=== PATIENT | male | born 1965 | race African-American/Black ===

== ENCOUNTER 2017-12-05 08:13 | Inpatient (IN) | payer OTHER ==
[2017-12-05 08:50] VITALS: BMI 25.8
[2017-12-05] MEDS ORDERED: LOPERAMIDE HCL 2 MG CAPSULE PO PRN (10:28)
[2017-12-05] MEDS ORDERED: IBUPROFEN 400 MG TABLET (FP) PO PRN (10:28)
[2017-12-05] MEDS ORDERED: MAG HYDROX/AL HYDROX/SIMETH 30 ML UNIT-DOSE CUP PO PRN (10:28)
[2017-12-05] MEDS ORDERED: P-EPHED 60MG/TRIPROLIDI 2.5MG TABLET PO PRN (10:28)
[2017-12-05] MEDS ORDERED: MAGNESIUM CITRATE 300 ML BOTTLE PO PRN (10:28)
[2017-12-05] MEDS ORDERED: MAGNESIUM HYDROX 2400MG/30ML ORAL SUSPENSION 30 ML CUP PO PRN (10:28)
--- NOTE | 2017-12-05 10:31 | HP ---
Admission ROS [facility] Chief Complaint: requesting inpatietn rehab for alcohol and cociane Allergies/Adverse Reactions: Allergies Allergy/AdvReac Type Severity Reaction Status Date / Time No Known Allergies Allergy Verified 12/05/17 09:53 History of Present Illness: 52 yo m requesting inpatient rehab from alcohol and cocaine [facility] PMHX biloar do, taking meds - Ebola screening Have you traveled outside of the country in the last 21 days: No Have you had contact with anyone from an Ebola affected area: No Have you been sick,other than usual withdrawal symptoms: No Do you have a fever: No - Review of Systems Constitutional: No Symptoms Reported EENT: reports: No Symptoms Reported Respiratory: reports: No Symptoms reported Cardiac: reports: No Symptoms Reported GI: reports: No Symptoms Reported : reports: No Symptoms Reported Musculoskeletal: reports: Joint Pain (bilaeral peripheral neurotpathy and pains in his hands), Other Integumentary: reports: No Symptoms Reported Neuro: reports: No Symptoms reported Endocrine: reports: No Symptoms Reported Hematology: reports: No Symptoms Reported Psychiatric: reports: Judgement Intact, Mood/Affect Appropiate, Orientated x3, Anxious, Depressed Other Systems: Reviewed and Negative Patient History - Patient Medical History Hx Anemia: No Hx Asthma: No Hx Chronic Obstructive Pulmonary Disease (COPD): No Hx Cancer: No Hx Cardiac Disorders: No Hx Congestive Heart Failure: No Hx Hypertension: Yes (taking meds) Hx Hypercholesterolemia: No Hx Pacemaker: No HX Cerebrovascular Accident: No Hx Seizures: No Hx Dementia: No Hx Diabetes: Yes (IDDM, taking meds) Hx Gastrointestinal Disorders: No Hx Liver Disease: No Hx Genitourinary Disorders: No Hx Sexually Transmitted Disorders: No Hx Renal Disease (ESRD): No Hx Thyroid Disease: No Hx Human Immunodeficiency Virus (HIV): No Hx Hepatitis C: No Hx Depression: Yes Hx Suicide Attempt: Yes (pill overdose in 03/2017, no si at this time) Hx Schizophrenia: No - Patient Surgical History Past Surgical History: No Hx Neurologic Surgery: No Hx Cataract Extraction: No Hx Cardiac Surgery: No Hx Lung Surgery: No Hx Breast Surgery: No Hx Breast Biopsy: No Hx Abdominal Surgery: No Hx Appendectomy: No Hx Cholecystectomy: No Hx Genitourinary Surgery: No Hx Section: No Hx Orthopedic Surgery: No Anesthesia Reaction: No - PPD History Previous Implant?: Yes Documented Results: Negative w/o proof Implanted On Prior [facility] Admission?: No PPD to be Administered?: Yes - Reproductive History Patient is a Female of Child Bearing Age (11 -55 yrs old): No Patient : No - Smoking Cessation Smoking history: Never smoked Have you smoked in the past 12 months: No Hx Chewing Tobacco Use: No Initiated information on smoking cessation: No 'Breaking Loose' booklet given: 12/05/17 - Substance & Tx. History Hx Alcohol Use: Yes Hx Substance Use: Yes Substance Use Type: Alcohol, Cocaine Hx Substance Use Treatment: Yes ([facility] detox) - Substances Abused Crack Route: Smoking Frequency: 1-3 times last 30 days Amount used: $40 Age of first use: 32 Date of Last Use: 11/27/17 Alcohol-beer/vodka Route: Oral Frequency: 3-6 times per week Amount used: 2 (24 oz.)/1-2 pts. Age of first use: 14 Date of Last Use: 11/27/17 Family Disease History - Family Disease History Family Disease History: Diabetes: Mother (alcohol), Other: Father (high cholesterol, cocaine addiction ) Admission Physical Exam [facility] - Vital Signs Vital Signs: Vital Signs - 24 hr 12/05/17 08:48 Temperature 98.8 F Pulse Rate 96 H Respiratory 18 Rate Blood Pressure 110/73 - Physical General Appearance: Yes: Within Normal Limits, No Apparent Distress, Nourished, Appropriately Dressed, Disheveled HEENTM: Yes: Within Normal Limits, EOMI, Hearing grossly Normal, Normal ENT Inspection, Normocephalic, Normal Voice, JUAN CARLOS, Pharynx Normal Respiratory: Yes: Within Normal Limits, Chest Non-Tender, Lungs Clear, Normal Breath Sounds, No Respiratory Distress, No Accessory Muscle Use Neck: Yes: Within Normal Limits, No masses,lesions,Nodules, Supple, Trachea in good position Breast: Yes: Breast Exam Deferred Cardiology: Yes: Within Normal Limits, Regular Rhythm, Regular Rate, S1, S2 Abdominal: Yes: Within Normal Limits, Normal Bowel Sounds, Non Tender, Flat, Soft, Increased Bowel Sounds Genitourinary: Yes: Within Normal Limits Back: Yes: Within Normal Limits, Normal Inspection Musculoskeletal: Yes: Within Normal Limits, full range of Motion, Gait Steady, Pelvis Stable Extremities: Yes: Within Normal Limits, Normal Capillary Refill, Normal Inspection, Normal Range of Motion, Non-Tender Neurological: Yes: pier master II-XII NML intact, Fully Oriented, Alert, Motor Strength 5/5, Normal Response, Depressed Affect Integumentary: Yes: Within Normal Limits, Normal Color, Dry, Warm Lymphatic: Yes: Within Normal Limits - Addiitonal Findings: no signs of withdrwal - Diagnostic (1) Bipolar depression Current Visit: Yes Status: Acute (2) Essential hypertension Current Visit: Yes Status: Acute (3) Diabetes Current Visit: Yes Status: Acute (4) Peripheral neuropathy Current Visit: Yes Status: Acute (5) Uncomplicated alcohol dependence Current Visit: No Status: Acute (6) Hyperlipidemia Current Visit: Yes Status: Acute (7) Cocaine dependence Current Visit: Yes Status: Acute Cleared for Admission [facility] - Detox or Rehab Claeared for Rehab Admission: Yes [facility] Breath Alcohol Content Breath Alcohol Content: 0 Urine Drug Screen - Results Drug Screen Negative: Yes Inpatient Rehab Admission - Initial Determination Are CD services needed?: Yes Free of communicable disease: Yes Not in need of hospitalization: Yes - Rehab Admission Criteria Comorbidities: Yes Patient is meeting Inpatient Rehab admission criteria:: Yes
[2017-12-05] MEDS: NAPROXEN 500 MG TABLET (FP) PO SCH ×2 (13:44→21:48)
[2017-12-05] MEDS: PANTOPRAZOLE 40 MG TABLET (FP) PO SCH (13:45)
[2017-12-05] MEDS: GABAPENTIN 300 MG CAPSULE (FP) PO SCH ×2 (13:45→21:48)
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
[2017-12-05 15:23] LABS: HEMATOCRIT 38.3 % (35.4-49); HEMOGLOBIN 12.6 GM/dL (11.7-16.9); MCH 30.2 pg (25.7-33.7); MCHC 32.9 g/dl (32.0-35.9); MEAN CELL VOLUME 91.7 fl (80-96); MEAN PLT VOLUME 8.3 fl (7.5-11.1); PLATELET COUNT 323 K/MM3 (134-434); RBC 4.17 M/mm3 (4.00-5.60); RDW 14.1 % (11.9-15.9); WHITE BLOOD COUNT 6.3 K/mm3 (4.0-10.0)
[2017-12-05 15:26] LABS: CHLORIDE 96 mmol/L (98-107); POTASSIUM 4.7 mmol/L (3.5-5.1); SODIUM 134 mmol/L (136-145)
[2017-12-05 15:57] LABS: ALBUMIN 4.1 g/dl (3.4-5.0); ALK PHOS 124 U/L (45-117); ANION GAP 9 (8-16); BILIRUBIN,TOTAL 0.2 mg/dL (0.2-1.0); BLOOD UREA NITROGEN 18 mg/dL (7-18); CALCIUM 9.4 mg/dL (8.5-10.1); CO2 29 mmol/L (21-32); CREATININE 1.3 mg/dL (0.7-1.3); GLUCOSE,RANDOM 245 mg/dL (74-106); SGOT/AST 15 U/L (15-37); SGPT/ALT 20 U/L (12-78); TOT PROT 8.2 g/dl (6.4-8.2)
[2017-12-05] MEDS: metFORMIN HCL 500 MG TABLET (FP) PO SCH (16:58)
[2017-12-05] MEDS: INSULIN (NOVOLOG) ASPART 100 UNITS/ML 10ML VIAL SQ SCH (16:59)
[2017-12-05 17:26] LABS: URINE APPEARANCE CLEAR; URINE BILIRUBIN NEGATIVE (NEGATIVE); URINE BLOOD NEGATIVE (NEGATIVE); URINE COLOR LTYELLOW; URINE GLUCOSE (UA) 3+ (NEGATIVE); URINE KETONE NEGATIVE (NEGATIVE); URINE LEUK ESTERASE NEGATIVE (NEGATIVE); URINE NITRITE NEGATIVE (NEGATIVE); URINE PROTEIN NEGATIVE (NEGATIVE); URINE UROBILINOGEN NEGATIVE mg/dL (0.2-1.0)
[2017-12-05 18:13] LABS: SICKLE CELL SCREEN NEGATIVE (NEGATIVE)
[2017-12-05] MEDS: INSULIN DETEMIR 100 UNITS/ML MDV SQ SCH (21:47)
[2017-12-05] MEDS: traZODone HCL 50 MG TABLET (FP) PO SCH (21:48)
[2017-12-05] MEDS: ATORVASTATIN CA 40 MG TABLET (FP) PO SCH (21:48)
[2017-12-05] MEDS: THIAMINE HCL 100 MG TABLET (FP) PO SCH (21:49)
[2017-12-06] MEDS: GABAPENTIN 300 MG CAPSULE (FP) PO SCH ×3 (06:41→21:53)
[2017-12-06] MEDS: metFORMIN HCL 500 MG TABLET (FP) PO SCH ×2 (07:15→17:17)
[2017-12-06] MEDS: INSULIN (NOVOLOG) ASPART 100 UNITS/ML 10ML VIAL SQ SCH ×3 (07:47→17:18)
[2017-12-06] MEDS: LURASIDONE HCL 20 MG TABLET PO SCH (10:16)
[2017-12-06] MEDS: LISINOPRIL 10 MG TABLET (FP) PO SCH (10:16)
[2017-12-06] MEDS: NAPROXEN 500 MG TABLET (FP) PO SCH ×2 (10:16→21:53)
[2017-12-06] MEDS: CITALOPRAM HYDROBROMIDE 20 MG TABLET (FP) PO SCH (10:16)
[2017-12-06] MEDS: PANTOPRAZOLE 40 MG TABLET (FP) PO SCH (10:16)
[2017-12-06] MEDS: PRENATAL VITAMINS W/ FOLIC ACID TABLET (FP) PO SCH (10:16)
[2017-12-06] MEDS ORDERED: PNEUMOCOCCAL 23 VACCINE 0.5 ML VIAL IM ONE (12:00)
[2017-12-06] MEDS ORDERED: FLU VACCINE QUAD 60 MCG/0.5 ML (MDV 17-18) IM ONE (12:00)
[2017-12-06] MEDS ORDERED: PNEUMOC 13-VAL CONJ-DIP CRM/PF 0.5 ML DISP.SYRIN IM ONE (12:00)
[2017-12-06] MEDS ORDERED: INSULIN (NOVOLOG) ASPART 100 UNITS/ML 10ML VIAL ONE (12:00)
--- NOTE | 2017-12-06 15:19 | EKG ---
Test Reason : Blood Pressure : / mmHG Vent. Rate : 087 BPM Atrial Rate : 087 BPM P-R Int : 154 ms QRS Dur : 094 ms QT Int : 366 ms P-R-T Axes : 071 -33 047 degrees QTc Int : 440 ms SINUS RHYTHM WITH OCCASIONAL PREMATURE VENTRICULAR COMPLEXES LEFT AXIS DEVIATION ABNORMAL ECG NO PREVIOUS ECGS AVAILABLE Confirmed by Vargas Miranda MD ([id number]) on 12/06/2017 3:19:06 PM Referred By: Confirmed By:Vargas Miranda MD
[2017-12-06] MEDS: THIAMINE HCL 100 MG TABLET (FP) PO SCH (21:53)
[2017-12-06] MEDS: INSULIN DETEMIR 100 UNITS/ML MDV SQ SCH (21:53)
[2017-12-06] MEDS: traZODone HCL 50 MG TABLET (FP) PO SCH (21:53)
[2017-12-06] MEDS: ATORVASTATIN CA 40 MG TABLET (FP) PO SCH (21:53)
[2017-12-07] MEDS: GABAPENTIN 300 MG CAPSULE (FP) PO SCH ×3 (06:19→21:41)
[2017-12-07] MEDS: metFORMIN HCL 500 MG TABLET (FP) PO SCH ×2 (06:19→16:52)
[2017-12-07] MEDS: INSULIN (NOVOLOG) ASPART 100 UNITS/ML 10ML VIAL SQ SCH ×3 (07:29→16:54)
[2017-12-07] MEDS: NAPROXEN 500 MG TABLET (FP) PO SCH ×2 (10:08→21:41)
[2017-12-07] MEDS: LISINOPRIL 10 MG TABLET (FP) PO SCH (10:09)
[2017-12-07] MEDS: LURASIDONE HCL 20 MG TABLET PO SCH (10:09)
[2017-12-07] MEDS: CITALOPRAM HYDROBROMIDE 20 MG TABLET (FP) PO SCH (10:09)
[2017-12-07] MEDS: PRENATAL VITAMINS W/ FOLIC ACID TABLET (FP) PO SCH (10:09)
[2017-12-07] MEDS: PANTOPRAZOLE 40 MG TABLET (FP) PO SCH (10:09)
[2017-12-07] MEDS: MENTHOL/PHENOL 1 EACH UD MM PRN ×2 (14:44→19:36)
[2017-12-07] MEDS: guaiFENesin/D-METHORPHAN HB 10 ML UNIT-DOSE CUPS PO PRN (20:32)
[2017-12-07] MEDS: traZODone HCL 50 MG TABLET (FP) PO SCH (21:41)
[2017-12-07] MEDS: THIAMINE HCL 100 MG TABLET (FP) PO SCH (21:41)
[2017-12-07] MEDS: ATORVASTATIN CA 40 MG TABLET (FP) PO SCH (21:41)
[2017-12-07] MEDS: INSULIN DETEMIR 100 UNITS/ML MDV SQ SCH (21:42)
[2017-12-08] MEDS: guaiFENesin/D-METHORPHAN HB 10 ML UNIT-DOSE CUPS PO PRN ×2 (06:41→18:07)
[2017-12-08] MEDS: ACETAMINOPHEN 325 MG TABLET (FP) PO PRN ×2 (06:41→18:06)
[2017-12-08] MEDS: GABAPENTIN 300 MG CAPSULE (FP) PO SCH ×3 (06:41→21:29)
[2017-12-08] MEDS: metFORMIN HCL 500 MG TABLET (FP) PO SCH ×2 (06:41→17:03)
[2017-12-08] MEDS: INSULIN (NOVOLOG) ASPART 100 UNITS/ML 10ML VIAL SQ SCH ×3 (06:43→17:04)
[2017-12-08] MEDS: LISINOPRIL 10 MG TABLET (FP) PO SCH (10:18)
[2017-12-08] MEDS: LURASIDONE HCL 20 MG TABLET PO SCH (10:18)
[2017-12-08] MEDS: NAPROXEN 500 MG TABLET (FP) PO SCH ×2 (10:18→21:29)
[2017-12-08] MEDS: PANTOPRAZOLE 40 MG TABLET (FP) PO SCH (10:18)
[2017-12-08] MEDS: PRENATAL VITAMINS W/ FOLIC ACID TABLET (FP) PO SCH (10:18)
[2017-12-08] MEDS: CITALOPRAM HYDROBROMIDE 20 MG TABLET (FP) PO SCH (10:18)
[2017-12-08] MEDS: traZODone HCL 50 MG TABLET (FP) PO SCH (21:29)
[2017-12-08] MEDS: ATORVASTATIN CA 40 MG TABLET (FP) PO SCH (21:29)
[2017-12-08] MEDS: THIAMINE HCL 100 MG TABLET (FP) PO SCH (21:29)
[2017-12-08] MEDS: INSULIN DETEMIR 100 UNITS/ML MDV SQ SCH (21:29)
[2017-12-09] MEDS: metFORMIN HCL 500 MG TABLET (FP) PO SCH ×2 (06:29→17:04)
[2017-12-09] MEDS: GABAPENTIN 300 MG CAPSULE (FP) PO SCH ×3 (06:29→21:56)
[2017-12-09] MEDS: guaiFENesin/D-METHORPHAN HB 10 ML UNIT-DOSE CUPS PO PRN ×2 (06:45→21:59)
[2017-12-09] MEDS: ACETAMINOPHEN 325 MG TABLET (FP) PO PRN (06:46)
[2017-12-09] MEDS: INSULIN (NOVOLOG) ASPART 100 UNITS/ML 10ML VIAL SQ SCH ×3 (07:37→17:04)
[2017-12-09] MEDS: CITALOPRAM HYDROBROMIDE 20 MG TABLET (FP) PO SCH (10:13)
[2017-12-09] MEDS: PRENATAL VITAMINS W/ FOLIC ACID TABLET (FP) PO SCH (10:14)
[2017-12-09] MEDS: NAPROXEN 500 MG TABLET (FP) PO SCH ×2 (10:14→21:56)
[2017-12-09] MEDS: LISINOPRIL 10 MG TABLET (FP) PO SCH (10:14)
[2017-12-09] MEDS: LURASIDONE HCL 20 MG TABLET PO SCH (10:14)
[2017-12-09] MEDS: PANTOPRAZOLE 40 MG TABLET (FP) PO SCH (10:14)
[2017-12-09] MEDS: THIAMINE HCL 100 MG TABLET (FP) PO SCH (21:56)
[2017-12-09] MEDS: ATORVASTATIN CA 40 MG TABLET (FP) PO SCH (21:56)
[2017-12-09] MEDS: traZODone HCL 50 MG TABLET (FP) PO SCH (21:56)
[2017-12-09] MEDS: INSULIN DETEMIR 100 UNITS/ML MDV SQ SCH (21:57)
[2017-12-10] MEDS: metFORMIN HCL 500 MG TABLET (FP) PO SCH ×2 (06:28→16:50)
[2017-12-10] MEDS: GABAPENTIN 300 MG CAPSULE (FP) PO SCH ×3 (06:28→21:36)
[2017-12-10] MEDS: INSULIN (NOVOLOG) ASPART 100 UNITS/ML 10ML VIAL SQ SCH ×3 (07:57→16:53)
[2017-12-10] MEDS ORDERED: INSULIN (NOVOLOG) ASPART 100 UNITS/ML 10ML VIAL ONE (07:59)
[2017-12-10] MEDS: LURASIDONE HCL 20 MG TABLET PO SCH (10:00)
[2017-12-10] MEDS: LISINOPRIL 10 MG TABLET (FP) PO SCH (10:00)
[2017-12-10] MEDS: CITALOPRAM HYDROBROMIDE 20 MG TABLET (FP) PO SCH (10:00)
[2017-12-10] MEDS: PANTOPRAZOLE 40 MG TABLET (FP) PO SCH (10:00)
[2017-12-10] MEDS: NAPROXEN 500 MG TABLET (FP) PO SCH ×2 (10:00→21:36)
[2017-12-10] MEDS: PRENATAL VITAMINS W/ FOLIC ACID TABLET (FP) PO SCH (10:00)
[2017-12-10] MEDS: ATORVASTATIN CA 40 MG TABLET (FP) PO SCH (21:36)
[2017-12-10] MEDS: traZODone HCL 50 MG TABLET (FP) PO SCH (21:36)
[2017-12-10] MEDS: INSULIN DETEMIR 100 UNITS/ML MDV SQ SCH (21:37)
[2017-12-10] MEDS: THIAMINE HCL 100 MG TABLET (FP) PO SCH (21:37)
[2017-12-11] MEDS: GABAPENTIN 300 MG CAPSULE (FP) PO SCH ×3 (06:16→21:30)
[2017-12-11] MEDS: metFORMIN HCL 500 MG TABLET (FP) PO SCH ×2 (06:16→17:08)
[2017-12-11] MEDS: INSULIN (NOVOLOG) ASPART 100 UNITS/ML 10ML VIAL SQ SCH ×3 (06:19→17:09)
[2017-12-11] MEDS: PRENATAL VITAMINS W/ FOLIC ACID TABLET (FP) PO SCH (09:48)
[2017-12-11] MEDS: NAPROXEN 500 MG TABLET (FP) PO SCH ×2 (09:48→21:30)
[2017-12-11] MEDS: PANTOPRAZOLE 40 MG TABLET (FP) PO SCH (09:48)
[2017-12-11] MEDS: LURASIDONE HCL 20 MG TABLET PO SCH (09:48)
[2017-12-11] MEDS: CITALOPRAM HYDROBROMIDE 20 MG TABLET (FP) PO SCH (09:48)
[2017-12-11] MEDS: LISINOPRIL 10 MG TABLET (FP) PO SCH (09:49)
[2017-12-11] MEDS ORDERED: BACITRACIN 15 GM TUBE TOPICAL OINTMENT TP SCH (10:00)
[2017-12-11] MEDS: HYDROCORTISONE 1% TOPICAL CREAM 30 GM TUBE TP PRN ×2 (13:48→21:32)
[2017-12-11] MEDS: ATORVASTATIN CA 40 MG TABLET (FP) PO SCH (21:30)
[2017-12-11] MEDS: traZODone HCL 50 MG TABLET (FP) PO SCH (21:30)
[2017-12-11] MEDS: THIAMINE HCL 100 MG TABLET (FP) PO SCH (21:30)
[2017-12-11] MEDS: INSULIN DETEMIR 100 UNITS/ML MDV SQ SCH (21:31)
[2017-12-11] MEDS: BACITRACIN 0.9 GM PACKET TP SCH (22:01)
[2017-12-12] MEDS: metFORMIN HCL 500 MG TABLET (FP) PO SCH ×2 (06:43→16:53)
[2017-12-12] MEDS: GABAPENTIN 300 MG CAPSULE (FP) PO SCH ×3 (06:43→21:25)
[2017-12-12] MEDS: INSULIN (NOVOLOG) ASPART 100 UNITS/ML 10ML VIAL SQ SCH ×3 (06:44→16:54)
[2017-12-12] MEDS: PANTOPRAZOLE 40 MG TABLET (FP) PO SCH (10:04)
[2017-12-12] MEDS: CITALOPRAM HYDROBROMIDE 20 MG TABLET (FP) PO SCH (10:04)
[2017-12-12] MEDS: NAPROXEN 500 MG TABLET (FP) PO SCH ×2 (10:04→21:25)
[2017-12-12] MEDS: PRENATAL VITAMINS W/ FOLIC ACID TABLET (FP) PO SCH (10:04)
[2017-12-12] MEDS: LURASIDONE HCL 20 MG TABLET PO SCH (10:04)
[2017-12-12] MEDS: LISINOPRIL 10 MG TABLET (FP) PO SCH (10:05)
[2017-12-12] MEDS: BACITRACIN 0.9 GM PACKET TP SCH ×2 (10:06→21:25)
[2017-12-12] MEDS: ATORVASTATIN CA 40 MG TABLET (FP) PO SCH (21:25)
[2017-12-12] MEDS: THIAMINE HCL 100 MG TABLET (FP) PO SCH (21:25)
[2017-12-12] MEDS: traZODone HCL 50 MG TABLET (FP) PO SCH (21:27)
[2017-12-12] MEDS: INSULIN DETEMIR 100 UNITS/ML MDV SQ SCH (21:27)
[2017-12-13] MEDS: GABAPENTIN 300 MG CAPSULE (FP) PO SCH ×3 (06:40→21:50)
[2017-12-13] MEDS: INSULIN (NOVOLOG) ASPART 100 UNITS/ML 10ML VIAL SQ SCH ×3 (06:40→17:08)
[2017-12-13] MEDS: metFORMIN HCL 500 MG TABLET (FP) PO SCH ×2 (06:40→17:08)
[2017-12-13] MEDS: NAPROXEN 500 MG TABLET (FP) PO SCH ×2 (10:34→21:50)
[2017-12-13] MEDS: CITALOPRAM HYDROBROMIDE 20 MG TABLET (FP) PO SCH (10:34)
[2017-12-13] MEDS: PANTOPRAZOLE 40 MG TABLET (FP) PO SCH (10:35)
[2017-12-13] MEDS: LURASIDONE HCL 20 MG TABLET PO SCH (10:35)
[2017-12-13] MEDS: PRENATAL VITAMINS W/ FOLIC ACID TABLET (FP) PO SCH (10:35)
[2017-12-13] MEDS: LISINOPRIL 10 MG TABLET (FP) PO SCH (10:37)
[2017-12-13] MEDS: BACITRACIN 0.9 GM PACKET TP SCH ×2 (10:38→21:53)
[2017-12-13] MEDS ORDERED: INSULIN (NOVOLOG) ASPART 100 UNITS/ML 10ML VIAL ONE (12:03)
[2017-12-13] MEDS: THIAMINE HCL 100 MG TABLET (FP) PO SCH (21:50)
[2017-12-13] MEDS: traZODone HCL 50 MG TABLET (FP) PO SCH (21:50)
[2017-12-13] MEDS: INSULIN DETEMIR 100 UNITS/ML MDV SQ SCH (21:50)
[2017-12-13] MEDS: HYDROCORTISONE 1% TOPICAL CREAM 30 GM TUBE TP PRN (21:52)
[2017-12-13] MEDS: ATORVASTATIN CA 40 MG TABLET (FP) PO SCH (21:53)
[2017-12-14] MEDS: GABAPENTIN 300 MG CAPSULE (FP) PO SCH ×3 (06:12→21:41)
[2017-12-14] MEDS: metFORMIN HCL 500 MG TABLET (FP) PO SCH ×2 (06:12→17:01)
[2017-12-14] MEDS: INSULIN (NOVOLOG) ASPART 100 UNITS/ML 10ML VIAL SQ SCH ×3 (06:41→17:02)
[2017-12-14] MEDS: CITALOPRAM HYDROBROMIDE 20 MG TABLET (FP) PO SCH (10:00)
[2017-12-14] MEDS: PANTOPRAZOLE 40 MG TABLET (FP) PO SCH (10:00)
[2017-12-14] MEDS: BACITRACIN 0.9 GM PACKET TP SCH ×2 (10:00→22:26)
[2017-12-14] MEDS: NAPROXEN 500 MG TABLET (FP) PO SCH ×2 (10:00→21:41)
[2017-12-14] MEDS: PRENATAL VITAMINS W/ FOLIC ACID TABLET (FP) PO SCH (10:00)
[2017-12-14] MEDS: LURASIDONE HCL 20 MG TABLET PO SCH (10:00)
[2017-12-14] MEDS: LISINOPRIL 10 MG TABLET (FP) PO SCH (10:01)
[2017-12-14] MEDS: ATORVASTATIN CA 40 MG TABLET (FP) PO SCH (21:41)
[2017-12-14] MEDS: THIAMINE HCL 100 MG TABLET (FP) PO SCH (21:41)
[2017-12-14] MEDS: traZODone HCL 50 MG TABLET (FP) PO SCH (21:41)
[2017-12-14] MEDS: INSULIN DETEMIR 100 UNITS/ML MDV SQ SCH (22:25)
[2017-12-15] MEDS: GABAPENTIN 300 MG CAPSULE (FP) PO SCH ×3 (06:31→21:43)
[2017-12-15] MEDS: INSULIN (NOVOLOG) ASPART 100 UNITS/ML 10ML VIAL SQ SCH ×3 (06:32→16:56)
[2017-12-15] MEDS: metFORMIN HCL 500 MG TABLET (FP) PO SCH ×2 (07:08→16:55)
[2017-12-15] MEDS: PRENATAL VITAMINS W/ FOLIC ACID TABLET (FP) PO SCH (10:24)
[2017-12-15] MEDS: LURASIDONE HCL 20 MG TABLET PO SCH (10:24)
[2017-12-15] MEDS: CITALOPRAM HYDROBROMIDE 20 MG TABLET (FP) PO SCH (10:24)
[2017-12-15] MEDS: NAPROXEN 500 MG TABLET (FP) PO SCH ×2 (10:24→21:43)
[2017-12-15] MEDS: LISINOPRIL 10 MG TABLET (FP) PO SCH (10:25)
[2017-12-15] MEDS: HYDROCORTISONE 1% TOPICAL CREAM 30 GM TUBE TP PRN (10:25)
[2017-12-15] MEDS: PANTOPRAZOLE 40 MG TABLET (FP) PO SCH (10:25)
[2017-12-15] MEDS: BACITRACIN 0.9 GM PACKET TP SCH ×2 (10:27→21:46)
[2017-12-15] MEDS: THIAMINE HCL 100 MG TABLET (FP) PO SCH (21:43)
[2017-12-15] MEDS: ATORVASTATIN CA 40 MG TABLET (FP) PO SCH (21:43)
[2017-12-15] MEDS: traZODone HCL 50 MG TABLET (FP) PO SCH (21:43)
[2017-12-15] MEDS: INSULIN DETEMIR 100 UNITS/ML MDV SQ SCH (21:44)
[2017-12-15] MEDS: hydrOXYzine PAMOATE 50 MG CAPSULE (FP) PO PRN (21:45)
[2017-12-16] MEDS: GABAPENTIN 300 MG CAPSULE (FP) PO SCH ×3 (06:24→21:30)
[2017-12-16] MEDS: INSULIN (NOVOLOG) ASPART 100 UNITS/ML 10ML VIAL SQ SCH ×3 (06:24→16:53)
[2017-12-16] MEDS: metFORMIN HCL 500 MG TABLET (FP) PO SCH ×2 (06:24→16:50)
[2017-12-16] MEDS: CITALOPRAM HYDROBROMIDE 20 MG TABLET (FP) PO SCH (10:16)
[2017-12-16] MEDS: PRENATAL VITAMINS W/ FOLIC ACID TABLET (FP) PO SCH (10:16)
[2017-12-16] MEDS: LISINOPRIL 10 MG TABLET (FP) PO SCH ×2 (10:16→10:17)
[2017-12-16] MEDS: BACITRACIN 0.9 GM PACKET TP SCH ×2 (10:16→21:32)
[2017-12-16] MEDS: PANTOPRAZOLE 40 MG TABLET (FP) PO SCH (10:16)
[2017-12-16] MEDS: NAPROXEN 500 MG TABLET (FP) PO SCH ×2 (10:16→21:30)
[2017-12-16] MEDS: LURASIDONE HCL 20 MG TABLET PO SCH (10:16)
[2017-12-16] MEDS: THIAMINE HCL 100 MG TABLET (FP) PO SCH (21:30)
[2017-12-16] MEDS: ATORVASTATIN CA 40 MG TABLET (FP) PO SCH (21:30)
[2017-12-16] MEDS: traZODone HCL 50 MG TABLET (FP) PO SCH (21:30)
[2017-12-16] MEDS: hydrOXYzine PAMOATE 50 MG CAPSULE (FP) PO PRN (21:31)
[2017-12-16] MEDS: INSULIN DETEMIR 100 UNITS/ML MDV SQ SCH (21:32)
[2017-12-17] MEDS: GABAPENTIN 300 MG CAPSULE (FP) PO SCH ×3 (06:45→21:21)
[2017-12-17] MEDS: metFORMIN HCL 500 MG TABLET (FP) PO SCH ×2 (06:45→16:50)
[2017-12-17] MEDS: INSULIN (NOVOLOG) ASPART 100 UNITS/ML 10ML VIAL SQ SCH ×3 (06:46→16:50)
[2017-12-17] MEDS: LURASIDONE HCL 20 MG TABLET PO SCH (10:19)
[2017-12-17] MEDS: PRENATAL VITAMINS W/ FOLIC ACID TABLET (FP) PO SCH (10:19)
[2017-12-17] MEDS: PANTOPRAZOLE 40 MG TABLET (FP) PO SCH (10:19)
[2017-12-17] MEDS: NAPROXEN 500 MG TABLET (FP) PO SCH ×2 (10:19→21:21)
[2017-12-17] MEDS: BACITRACIN 0.9 GM PACKET TP SCH ×2 (10:19→21:23)
[2017-12-17] MEDS: LISINOPRIL 10 MG TABLET (FP) PO SCH (10:20)
[2017-12-17] MEDS: CITALOPRAM HYDROBROMIDE 20 MG TABLET (FP) PO SCH (10:20)
[2017-12-17] MEDS ORDERED: INSULIN (NOVOLOG) ASPART 100 UNITS/ML 10ML VIAL ONE (12:31)
[2017-12-17] MEDS: ATORVASTATIN CA 40 MG TABLET (FP) PO SCH (21:21)
[2017-12-17] MEDS: INSULIN DETEMIR 100 UNITS/ML MDV SQ SCH (21:21)
[2017-12-17] MEDS: THIAMINE HCL 100 MG TABLET (FP) PO SCH (21:21)
[2017-12-17] MEDS: traZODone HCL 50 MG TABLET (FP) PO SCH (21:21)
[2017-12-17] MEDS: hydrOXYzine PAMOATE 50 MG CAPSULE (FP) PO PRN (21:24)
[2017-12-18] MEDS ORDERED: INSULIN (NOVOLOG) ASPART 100 UNITS/ML 10ML VIAL ONE ×2 (06:30→11:59)
[2017-12-18] MEDS: GABAPENTIN 300 MG CAPSULE (FP) PO SCH ×3 (06:31→21:24)
[2017-12-18] MEDS: metFORMIN HCL 500 MG TABLET (FP) PO SCH ×2 (06:32→17:02)
[2017-12-18] MEDS: INSULIN (NOVOLOG) ASPART 100 UNITS/ML 10ML VIAL SQ SCH ×3 (07:14→17:03)
[2017-12-18] MEDS: CITALOPRAM HYDROBROMIDE 20 MG TABLET (FP) PO SCH (10:04)
[2017-12-18] MEDS: PRENATAL VITAMINS W/ FOLIC ACID TABLET (FP) PO SCH (10:04)
[2017-12-18] MEDS: LURASIDONE HCL 20 MG TABLET PO SCH (10:04)
[2017-12-18] MEDS: LISINOPRIL 10 MG TABLET (FP) PO SCH (10:04)
[2017-12-18] MEDS: PANTOPRAZOLE 40 MG TABLET (FP) PO SCH (10:04)
[2017-12-18] MEDS: NAPROXEN 500 MG TABLET (FP) PO SCH ×2 (10:04→21:24)
[2017-12-18] MEDS: INSULIN DETEMIR 100 UNITS/ML MDV SQ SCH (21:23)
[2017-12-18] MEDS: traZODone HCL 50 MG TABLET (FP) PO SCH (21:24)
[2017-12-18] MEDS: ATORVASTATIN CA 40 MG TABLET (FP) PO SCH (21:24)
[2017-12-18] MEDS: THIAMINE HCL 100 MG TABLET (FP) PO SCH (21:24)
[2017-12-18] MEDS: hydrOXYzine PAMOATE 50 MG CAPSULE (FP) PO PRN (21:26)
[2017-12-19] MEDS: GABAPENTIN 300 MG CAPSULE (FP) PO SCH ×3 (06:09→21:39)
[2017-12-19] MEDS: metFORMIN HCL 500 MG TABLET (FP) PO SCH ×2 (06:09→17:04)
[2017-12-19] MEDS: INSULIN (NOVOLOG) ASPART 100 UNITS/ML 10ML VIAL SQ SCH ×3 (06:10→17:04)
[2017-12-19] MEDS: NAPROXEN 500 MG TABLET (FP) PO SCH ×2 (10:26→21:39)
[2017-12-19] MEDS: LURASIDONE HCL 20 MG TABLET PO SCH (10:27)
[2017-12-19] MEDS: PANTOPRAZOLE 40 MG TABLET (FP) PO SCH (10:27)
[2017-12-19] MEDS: PRENATAL VITAMINS W/ FOLIC ACID TABLET (FP) PO SCH (10:27)
[2017-12-19] MEDS: CITALOPRAM HYDROBROMIDE 20 MG TABLET (FP) PO SCH (10:27)
[2017-12-19] MEDS: LISINOPRIL 10 MG TABLET (FP) PO SCH (10:27)
[2017-12-19] MEDS: traZODone HCL 50 MG TABLET (FP) PO SCH (21:39)
[2017-12-19] MEDS: THIAMINE HCL 100 MG TABLET (FP) PO SCH (21:39)
[2017-12-19] MEDS: ATORVASTATIN CA 40 MG TABLET (FP) PO SCH (21:39)
[2017-12-19] MEDS: hydrOXYzine PAMOATE 50 MG CAPSULE (FP) PO PRN (21:40)
[2017-12-19] MEDS: INSULIN DETEMIR 100 UNITS/ML MDV SQ SCH (22:20)
[2017-12-20] MEDS: GABAPENTIN 300 MG CAPSULE (FP) PO SCH ×3 (06:29→21:05)
[2017-12-20] MEDS: metFORMIN HCL 500 MG TABLET (FP) PO SCH ×2 (06:29→16:58)
[2017-12-20] MEDS: INSULIN (NOVOLOG) ASPART 100 UNITS/ML 10ML VIAL SQ SCH ×3 (07:57→16:59)
[2017-12-20] MEDS: LISINOPRIL 10 MG TABLET (FP) PO SCH (10:14)
[2017-12-20] MEDS: NAPROXEN 500 MG TABLET (FP) PO SCH ×2 (10:14→21:05)
[2017-12-20] MEDS: LURASIDONE HCL 20 MG TABLET PO SCH (10:14)
[2017-12-20] MEDS: PANTOPRAZOLE 40 MG TABLET (FP) PO SCH (10:14)
[2017-12-20] MEDS: PRENATAL VITAMINS W/ FOLIC ACID TABLET (FP) PO SCH (10:14)
[2017-12-20] MEDS: CITALOPRAM HYDROBROMIDE 20 MG TABLET (FP) PO SCH (10:14)
[2017-12-20] MEDS ORDERED: INSULIN (NOVOLOG) ASPART 100 UNITS/ML 10ML VIAL ONE (16:33)
[2017-12-20] MEDS: INSULIN DETEMIR 100 UNITS/ML MDV SQ SCH (21:04)
[2017-12-20] MEDS: traZODone HCL 50 MG TABLET (FP) PO SCH (21:05)
[2017-12-20] MEDS: ATORVASTATIN CA 40 MG TABLET (FP) PO SCH (21:05)
[2017-12-20] MEDS: THIAMINE HCL 100 MG TABLET (FP) PO SCH (21:05)
[2017-12-20] MEDS: hydrOXYzine PAMOATE 50 MG CAPSULE (FP) PO PRN (21:06)
[2017-12-21] MEDS: GABAPENTIN 300 MG CAPSULE (FP) PO SCH ×3 (06:27→21:38)
[2017-12-21] MEDS: metFORMIN HCL 500 MG TABLET (FP) PO SCH ×2 (06:31→17:08)
[2017-12-21] MEDS: INSULIN (NOVOLOG) ASPART 100 UNITS/ML 10ML VIAL SQ SCH ×3 (07:40→17:07)
[2017-12-21] MEDS: NAPROXEN 500 MG TABLET (FP) PO SCH ×2 (10:39→21:38)
[2017-12-21] MEDS: LURASIDONE HCL 20 MG TABLET PO SCH (10:39)
[2017-12-21] MEDS: PRENATAL VITAMINS W/ FOLIC ACID TABLET (FP) PO SCH (10:39)
[2017-12-21] MEDS: LISINOPRIL 10 MG TABLET (FP) PO SCH (10:39)
[2017-12-21] MEDS: PANTOPRAZOLE 40 MG TABLET (FP) PO SCH (10:39)
[2017-12-21] MEDS: CITALOPRAM HYDROBROMIDE 20 MG TABLET (FP) PO SCH (10:39)
[2017-12-21] MEDS: INSULIN DETEMIR 100 UNITS/ML MDV SQ SCH (21:37)
[2017-12-21] MEDS: THIAMINE HCL 100 MG TABLET (FP) PO SCH (21:38)
[2017-12-21] MEDS: traZODone HCL 50 MG TABLET (FP) PO SCH (21:38)
[2017-12-21] MEDS: ATORVASTATIN CA 40 MG TABLET (FP) PO SCH (21:38)
[2017-12-21] MEDS: hydrOXYzine PAMOATE 50 MG CAPSULE (FP) PO PRN (21:38)
[2017-12-22] MEDS: GABAPENTIN 300 MG CAPSULE (FP) PO SCH ×3 (06:19→21:50)
[2017-12-22] MEDS: metFORMIN HCL 500 MG TABLET (FP) PO SCH ×2 (06:19→16:51)
[2017-12-22] MEDS: INSULIN (NOVOLOG) ASPART 100 UNITS/ML 10ML VIAL SQ SCH ×3 (06:20→16:52)
[2017-12-22] MEDS: NAPROXEN 500 MG TABLET (FP) PO SCH ×2 (10:25→21:50)
[2017-12-22] MEDS: LISINOPRIL 10 MG TABLET (FP) PO SCH (10:25)
[2017-12-22] MEDS: PRENATAL VITAMINS W/ FOLIC ACID TABLET (FP) PO SCH (10:25)
[2017-12-22] MEDS: LURASIDONE HCL 20 MG TABLET PO SCH (10:25)
[2017-12-22] MEDS: CITALOPRAM HYDROBROMIDE 20 MG TABLET (FP) PO SCH (10:25)
[2017-12-22] MEDS: PANTOPRAZOLE 40 MG TABLET (FP) PO SCH (10:25)
[2017-12-22] MEDS: traZODone HCL 50 MG TABLET (FP) PO SCH (21:50)
[2017-12-22] MEDS: THIAMINE HCL 100 MG TABLET (FP) PO SCH (21:50)
[2017-12-22] MEDS: ATORVASTATIN CA 40 MG TABLET (FP) PO SCH (21:50)
[2017-12-22] MEDS: INSULIN DETEMIR 100 UNITS/ML MDV SQ SCH (21:51)
[2017-12-22] MEDS: hydrOXYzine PAMOATE 50 MG CAPSULE (FP) PO PRN (21:51)
[2017-12-23] MEDS: GABAPENTIN 300 MG CAPSULE (FP) PO SCH ×3 (06:16→21:33)
[2017-12-23] MEDS: INSULIN (NOVOLOG) ASPART 100 UNITS/ML 10ML VIAL SQ SCH ×3 (07:02→17:15)
[2017-12-23] MEDS: metFORMIN HCL 500 MG TABLET (FP) PO SCH ×2 (07:02→17:13)
[2017-12-23] MEDS: LISINOPRIL 10 MG TABLET (FP) PO SCH (10:29)
[2017-12-23] MEDS: LURASIDONE HCL 20 MG TABLET PO SCH (10:29)
[2017-12-23] MEDS: PANTOPRAZOLE 40 MG TABLET (FP) PO SCH (10:29)
[2017-12-23] MEDS: CITALOPRAM HYDROBROMIDE 20 MG TABLET (FP) PO SCH (10:29)
[2017-12-23] MEDS: NAPROXEN 500 MG TABLET (FP) PO SCH ×2 (10:29→21:33)
[2017-12-23] MEDS: HYDROCORTISONE 1% TOPICAL CREAM 30 GM TUBE TP PRN (10:29)
[2017-12-23] MEDS: PRENATAL VITAMINS W/ FOLIC ACID TABLET (FP) PO SCH (10:29)
[2017-12-23] MEDS: THIAMINE HCL 100 MG TABLET (FP) PO SCH (21:33)
[2017-12-23] MEDS: traZODone HCL 50 MG TABLET (FP) PO SCH (21:33)
[2017-12-23] MEDS: ATORVASTATIN CA 40 MG TABLET (FP) PO SCH (21:33)
[2017-12-23] MEDS: INSULIN DETEMIR 100 UNITS/ML MDV SQ SCH (21:34)
[2017-12-23] MEDS: hydrOXYzine PAMOATE 50 MG CAPSULE (FP) PO PRN (21:35)
[2017-12-24] MEDS: metFORMIN HCL 500 MG TABLET (FP) PO SCH ×2 (06:33→17:02)
[2017-12-24] MEDS: INSULIN (NOVOLOG) ASPART 100 UNITS/ML 10ML VIAL SQ SCH ×3 (06:33→17:05)
[2017-12-24] MEDS: GABAPENTIN 300 MG CAPSULE (FP) PO SCH ×3 (06:33→21:37)
[2017-12-24] MEDS: CITALOPRAM HYDROBROMIDE 20 MG TABLET (FP) PO SCH (10:24)
[2017-12-24] MEDS: PANTOPRAZOLE 40 MG TABLET (FP) PO SCH (10:24)
[2017-12-24] MEDS: LURASIDONE HCL 20 MG TABLET PO SCH (10:24)
[2017-12-24] MEDS: NAPROXEN 500 MG TABLET (FP) PO SCH ×2 (10:24→21:37)
[2017-12-24] MEDS: PRENATAL VITAMINS W/ FOLIC ACID TABLET (FP) PO SCH (10:24)
[2017-12-24] MEDS: LISINOPRIL 10 MG TABLET (FP) PO SCH (10:25)
[2017-12-24] MEDS ORDERED: INSULIN (NOVOLOG) ASPART 100 UNITS/ML 10ML VIAL SQ ONE (20:55)
[2017-12-24] MEDS: INSULIN DETEMIR 100 UNITS/ML MDV SQ SCH (21:36)
[2017-12-24] MEDS: THIAMINE HCL 100 MG TABLET (FP) PO SCH (21:37)
[2017-12-24] MEDS: hydrOXYzine PAMOATE 50 MG CAPSULE (FP) PO PRN (21:37)
[2017-12-24] MEDS: traZODone HCL 50 MG TABLET (FP) PO SCH (21:37)
[2017-12-24] MEDS: ATORVASTATIN CA 40 MG TABLET (FP) PO SCH (21:37)
[2017-12-25] MEDS: GABAPENTIN 300 MG CAPSULE (FP) PO SCH ×3 (06:46→21:34)
[2017-12-25] MEDS: metFORMIN HCL 500 MG TABLET (FP) PO SCH ×2 (07:16→17:02)
[2017-12-25] MEDS: INSULIN (NOVOLOG) ASPART 100 UNITS/ML 10ML VIAL SQ SCH ×3 (07:17→17:02)
[2017-12-25] MEDS: PANTOPRAZOLE 40 MG TABLET (FP) PO SCH (10:20)
[2017-12-25] MEDS: NAPROXEN 500 MG TABLET (FP) PO SCH ×2 (10:20→21:34)
[2017-12-25] MEDS: LURASIDONE HCL 20 MG TABLET PO SCH (10:20)
[2017-12-25] MEDS: PRENATAL VITAMINS W/ FOLIC ACID TABLET (FP) PO SCH (10:20)
[2017-12-25] MEDS: CITALOPRAM HYDROBROMIDE 20 MG TABLET (FP) PO SCH (10:20)
[2017-12-25] MEDS: LISINOPRIL 10 MG TABLET (FP) PO SCH (10:21)
[2017-12-25] MEDS: INSULIN DETEMIR 100 UNITS/ML MDV SQ SCH (21:34)
[2017-12-25] MEDS: ATORVASTATIN CA 40 MG TABLET (FP) PO SCH (21:35)
[2017-12-25] MEDS: traZODone HCL 50 MG TABLET (FP) PO SCH (21:35)
[2017-12-25] MEDS: THIAMINE HCL 100 MG TABLET (FP) PO SCH (21:35)
[2017-12-25] MEDS: hydrOXYzine PAMOATE 50 MG CAPSULE (FP) PO PRN (21:36)
[2017-12-26] MEDS: metFORMIN HCL 500 MG TABLET (FP) PO SCH ×2 (06:23→16:51)
[2017-12-26] MEDS: GABAPENTIN 300 MG CAPSULE (FP) PO SCH ×3 (07:30→21:42)
[2017-12-26] MEDS: INSULIN (NOVOLOG) ASPART 100 UNITS/ML 10ML VIAL SQ SCH ×3 (07:30→16:53)
[2017-12-26] MEDS: NAPROXEN 500 MG TABLET (FP) PO SCH ×2 (10:37→21:41)
[2017-12-26] MEDS: LURASIDONE HCL 20 MG TABLET PO SCH (10:37)
[2017-12-26] MEDS: CITALOPRAM HYDROBROMIDE 20 MG TABLET (FP) PO SCH (10:37)
[2017-12-26] MEDS: PANTOPRAZOLE 40 MG TABLET (FP) PO SCH (10:37)
[2017-12-26] MEDS: PRENATAL VITAMINS W/ FOLIC ACID TABLET (FP) PO SCH (10:38)
[2017-12-26] MEDS: LISINOPRIL 10 MG TABLET (FP) PO SCH (10:38)
[2017-12-26] MEDS: traZODone HCL 50 MG TABLET (FP) PO SCH (21:41)
[2017-12-26] MEDS: THIAMINE HCL 100 MG TABLET (FP) PO SCH (21:41)
[2017-12-26] MEDS: ATORVASTATIN CA 40 MG TABLET (FP) PO SCH (21:41)
[2017-12-26] MEDS: INSULIN DETEMIR 100 UNITS/ML MDV SQ SCH (21:42)
[2017-12-26] MEDS: hydrOXYzine PAMOATE 50 MG CAPSULE (FP) PO PRN (21:42)
[2017-12-27] MEDS: metFORMIN HCL 500 MG TABLET (FP) PO SCH ×2 (06:36→17:15)
[2017-12-27] MEDS: GABAPENTIN 300 MG CAPSULE (FP) PO SCH ×3 (06:36→21:32)
[2017-12-27] MEDS: INSULIN (NOVOLOG) ASPART 100 UNITS/ML 10ML VIAL SQ SCH ×3 (07:34→17:16)
[2017-12-27] MEDS: HYDROCORTISONE 1% TOPICAL CREAM 30 GM TUBE TP PRN (10:25)
[2017-12-27] MEDS: CITALOPRAM HYDROBROMIDE 20 MG TABLET (FP) PO SCH (10:25)
[2017-12-27] MEDS: PRENATAL VITAMINS W/ FOLIC ACID TABLET (FP) PO SCH (10:25)
[2017-12-27] MEDS: LURASIDONE HCL 20 MG TABLET PO SCH (10:25)
[2017-12-27] MEDS: LISINOPRIL 10 MG TABLET (FP) PO SCH (10:25)
[2017-12-27] MEDS: NAPROXEN 500 MG TABLET (FP) PO SCH ×2 (10:25→21:32)
[2017-12-27] MEDS: PANTOPRAZOLE 40 MG TABLET (FP) PO SCH (10:25)
[2017-12-27] MEDS ORDERED: ATORVASTATIN CA 20 MG TABLET (FP) ONE (20:33)
[2017-12-27] MEDS: INSULIN DETEMIR 100 UNITS/ML MDV SQ SCH (21:32)
[2017-12-27] MEDS: traZODone HCL 50 MG TABLET (FP) PO SCH (21:32)
[2017-12-27] MEDS: ATORVASTATIN CA 40 MG TABLET (FP) PO SCH (21:33)
[2017-12-27] MEDS: THIAMINE HCL 100 MG TABLET (FP) PO SCH (21:33)
[2017-12-27] MEDS: hydrOXYzine PAMOATE 50 MG CAPSULE (FP) PO PRN (21:33)
[2017-12-28] MEDS: metFORMIN HCL 500 MG TABLET (FP) PO SCH ×2 (06:30→16:53)
[2017-12-28] MEDS: GABAPENTIN 300 MG CAPSULE (FP) PO SCH ×3 (06:30→21:33)
[2017-12-28] MEDS: INSULIN (NOVOLOG) ASPART 100 UNITS/ML 10ML VIAL SQ SCH ×3 (06:30→17:08)
[2017-12-28] MEDS: PRENATAL VITAMINS W/ FOLIC ACID TABLET (FP) PO SCH (10:32)
[2017-12-28] MEDS: LURASIDONE HCL 20 MG TABLET PO SCH (10:32)
[2017-12-28] MEDS: PANTOPRAZOLE 40 MG TABLET (FP) PO SCH (10:32)
[2017-12-28] MEDS: LISINOPRIL 10 MG TABLET (FP) PO SCH (10:32)
[2017-12-28] MEDS: CITALOPRAM HYDROBROMIDE 20 MG TABLET (FP) PO SCH (10:32)
[2017-12-28] MEDS: NAPROXEN 500 MG TABLET (FP) PO SCH ×2 (10:33→21:33)
[2017-12-28] MEDS ORDERED: ATORVASTATIN CA 20 MG TABLET (FP) ONE (19:39)
[2017-12-28] MEDS: ATORVASTATIN CA 40 MG TABLET (FP) PO SCH (21:33)
[2017-12-28] MEDS: traZODone HCL 50 MG TABLET (FP) PO SCH (21:33)
[2017-12-28] MEDS: INSULIN DETEMIR 100 UNITS/ML MDV SQ SCH (21:33)
[2017-12-28] MEDS: hydrOXYzine PAMOATE 50 MG CAPSULE (FP) PO PRN (21:34)
[2017-12-28] MEDS: THIAMINE HCL 100 MG TABLET (FP) PO SCH (21:34)
[2017-12-29] MEDS: GABAPENTIN 300 MG CAPSULE (FP) PO SCH ×3 (06:19→21:02)
[2017-12-29] MEDS: metFORMIN HCL 500 MG TABLET (FP) PO SCH ×2 (06:20→17:07)
[2017-12-29] MEDS: INSULIN (NOVOLOG) ASPART 100 UNITS/ML 10ML VIAL SQ SCH ×3 (06:20→17:08)
[2017-12-29] MEDS: PANTOPRAZOLE 40 MG TABLET (FP) PO SCH (10:26)
[2017-12-29] MEDS: NAPROXEN 500 MG TABLET (FP) PO SCH ×2 (10:26→21:02)
[2017-12-29] MEDS: CITALOPRAM HYDROBROMIDE 20 MG TABLET (FP) PO SCH (10:26)
[2017-12-29] MEDS: PRENATAL VITAMINS W/ FOLIC ACID TABLET (FP) PO SCH (10:26)
[2017-12-29] MEDS: LURASIDONE HCL 20 MG TABLET PO SCH (10:26)
[2017-12-29] MEDS: LISINOPRIL 10 MG TABLET (FP) PO SCH (10:26)
[2017-12-29] MEDS: INSULIN DETEMIR 100 UNITS/ML MDV SQ SCH (21:00)
[2017-12-29] MEDS: traZODone HCL 50 MG TABLET (FP) PO SCH (21:02)
[2017-12-29] MEDS: ATORVASTATIN CA 40 MG TABLET (FP) PO SCH (21:02)
[2017-12-29] MEDS: THIAMINE HCL 100 MG TABLET (FP) PO SCH (21:02)
[2017-12-29] MEDS: hydrOXYzine PAMOATE 50 MG CAPSULE (FP) PO PRN (21:04)
[2017-12-30] MEDS: GABAPENTIN 300 MG CAPSULE (FP) PO SCH ×3 (06:20→21:36)
[2017-12-30] MEDS: metFORMIN HCL 500 MG TABLET (FP) PO SCH ×2 (06:21→16:45)
[2017-12-30] MEDS: INSULIN (NOVOLOG) ASPART 100 UNITS/ML 10ML VIAL SQ SCH ×3 (07:55→18:03)
[2017-12-30] MEDS: LURASIDONE HCL 20 MG TABLET PO SCH (10:25)
[2017-12-30] MEDS: LISINOPRIL 10 MG TABLET (FP) PO SCH (10:25)
[2017-12-30] MEDS: PRENATAL VITAMINS W/ FOLIC ACID TABLET (FP) PO SCH (10:25)
[2017-12-30] MEDS: PANTOPRAZOLE 40 MG TABLET (FP) PO SCH (10:25)
[2017-12-30] MEDS: CITALOPRAM HYDROBROMIDE 20 MG TABLET (FP) PO SCH (10:25)
[2017-12-30] MEDS: NAPROXEN 500 MG TABLET (FP) PO SCH ×2 (10:25→21:37)
[2017-12-30] MEDS: traZODone HCL 50 MG TABLET (FP) PO SCH (21:36)
[2017-12-30] MEDS: ATORVASTATIN CA 40 MG TABLET (FP) PO SCH (21:37)
[2017-12-30] MEDS: THIAMINE HCL 100 MG TABLET (FP) PO SCH (21:37)
[2017-12-30] MEDS: hydrOXYzine PAMOATE 50 MG CAPSULE (FP) PO PRN (21:37)
[2017-12-30] MEDS: INSULIN DETEMIR 100 UNITS/ML MDV SQ SCH (21:38)
[2017-12-31] MEDS: metFORMIN HCL 500 MG TABLET (FP) PO SCH ×2 (06:45→16:42)
[2017-12-31] MEDS: GABAPENTIN 300 MG CAPSULE (FP) PO SCH ×3 (06:46→21:57)
[2017-12-31] MEDS: INSULIN (NOVOLOG) ASPART 100 UNITS/ML 10ML VIAL SQ SCH ×3 (06:46→16:43)
[2017-12-31] MEDS: PRENATAL VITAMINS W/ FOLIC ACID TABLET (FP) PO SCH (10:24)
[2017-12-31] MEDS: LISINOPRIL 10 MG TABLET (FP) PO SCH (10:24)
[2017-12-31] MEDS: CITALOPRAM HYDROBROMIDE 20 MG TABLET (FP) PO SCH (10:24)
[2017-12-31] MEDS: PANTOPRAZOLE 40 MG TABLET (FP) PO SCH (10:25)
[2017-12-31] MEDS: LURASIDONE HCL 20 MG TABLET PO SCH (10:25)
[2017-12-31] MEDS: NAPROXEN 500 MG TABLET (FP) PO SCH ×2 (10:25→21:57)
[2017-12-31] MEDS ORDERED: INSULIN (NOVOLOG) ASPART 100 UNITS/ML 10ML VIAL ONE (12:49)
[2017-12-31] MEDS: THIAMINE HCL 100 MG TABLET (FP) PO SCH (21:56)
[2017-12-31] MEDS: traZODone HCL 50 MG TABLET (FP) PO SCH (21:57)
[2017-12-31] MEDS: ATORVASTATIN CA 40 MG TABLET (FP) PO SCH (21:57)
[2017-12-31] MEDS: hydrOXYzine PAMOATE 50 MG CAPSULE (FP) PO PRN (21:58)
[2017-12-31] MEDS: INSULIN DETEMIR 100 UNITS/ML MDV SQ SCH (22:00)
[2018-01-01] MEDS: metFORMIN HCL 500 MG TABLET (FP) PO SCH ×2 (06:44→16:59)
[2018-01-01] MEDS: GABAPENTIN 300 MG CAPSULE (FP) PO SCH ×3 (06:45→22:02)
[2018-01-01] MEDS: INSULIN (NOVOLOG) ASPART 100 UNITS/ML 10ML VIAL SQ SCH ×3 (08:30→17:00)
[2018-01-01] MEDS: NAPROXEN 500 MG TABLET (FP) PO SCH ×2 (10:41→22:02)
[2018-01-01] MEDS: CITALOPRAM HYDROBROMIDE 20 MG TABLET (FP) PO SCH (10:41)
[2018-01-01] MEDS: PANTOPRAZOLE 40 MG TABLET (FP) PO SCH (10:41)
[2018-01-01] MEDS: LISINOPRIL 10 MG TABLET (FP) PO SCH (10:41)
[2018-01-01] MEDS: LURASIDONE HCL 20 MG TABLET PO SCH (10:41)
[2018-01-01] MEDS: PRENATAL VITAMINS W/ FOLIC ACID TABLET (FP) PO SCH (10:41)
[2018-01-01] MEDS ORDERED: INSULIN (NOVOLOG) ASPART 100 UNITS/ML 10ML VIAL ONE (12:29)
[2018-01-01] MEDS: INSULIN DETEMIR 100 UNITS/ML MDV SQ SCH (22:01)
[2018-01-01] MEDS: traZODone HCL 50 MG TABLET (FP) PO SCH (22:02)
[2018-01-01] MEDS: ATORVASTATIN CA 40 MG TABLET (FP) PO SCH (22:02)
[2018-01-01] MEDS: THIAMINE HCL 100 MG TABLET (FP) PO SCH (22:02)
[2018-01-01] MEDS: hydrOXYzine PAMOATE 50 MG CAPSULE (FP) PO PRN (22:03)
[2018-01-02] MEDS: metFORMIN HCL 500 MG TABLET (FP) PO SCH (06:23)
[2018-01-02] MEDS: GABAPENTIN 300 MG CAPSULE (FP) PO SCH (06:23)
[2018-01-02] MEDS: INSULIN (NOVOLOG) ASPART 100 UNITS/ML 10ML VIAL SQ SCH (06:23)
[2018-01-02 07:05] VITALS: BP 153/90; PULSE 92; TEMP 97.5
[2018-01-02] MEDS: CITALOPRAM HYDROBROMIDE 20 MG TABLET (FP) PO SCH (09:40)
[2018-01-02] MEDS: PANTOPRAZOLE 40 MG TABLET (FP) PO SCH (09:40)
[2018-01-02] MEDS: LISINOPRIL 10 MG TABLET (FP) PO SCH (09:40)
[2018-01-02] MEDS: PRENATAL VITAMINS W/ FOLIC ACID TABLET (FP) PO SCH (09:40)
[2018-01-02] MEDS: NAPROXEN 500 MG TABLET (FP) PO SCH (09:40)
[2018-01-02] MEDS: LURASIDONE HCL 20 MG TABLET PO SCH (09:40)
--- NOTE | 2018-01-02 10:05 | HP ---
Psychiatrist Admission - Data Vital Signs: Vital Signs - 24 hr 01/02/18 01/02/18 01/02/18 00:30 03:30 07:05 Temperature 97.5 F L Pulse Rate 92 H Respiratory 18 18 18 Rate Blood Pressure 153/90 Allergies/Adverse Reactions: Allergies Allergy/AdvReac Type Severity Reaction Status Date / Time No Known Allergies Allergy Verified 12/05/17 09:53 Psychiatric Findings - Problem List (Novelty 1, 2,3) (1) Alcohol dependence Status: Acute (2) Bipolar depression Status: Acute (3) Cocaine dependence Status: Acute
--- NOTE | 2018-01-02 10:06 | PN ---
Psychiatric Progress Note Vital Signs: Vital Signs Period Temp Pulse Resp BP Sys/Perea Pulse Ox Last 24 Hr 97.5 F 92 18-18 153/90 Date of Session: 01/02/18 Chief Complaint:: discharge visit HPI: Patient has addressed alcohol, cocaine dependence comorbid Bipolar I disorder. ROS: DM, HTN, Neuropathy of both hands, Arthritis on both hands and Hyperlipidemia medically managed. Current Side Effect: No Lab tests ordered: No Lab tests reviewed: Yes Provider note:: Patient completed today this program and has met his treatment goals, will continue to address his issues at [facility] Patient continues to find that Celexa, Latuda and Trazodone help to reduce anxiety, improves his mood and sleeping. Script for 30 days provided. Supportive therapy provided focusing on relapse prevention including coping skills and support utilization to maintain recovery. Patient is stable for discharge today. Total face to face time:: 25 Mental Status Exam - Mental Status Exam Alert and Oriented to: Time, Place, Person Cognitive Function: Good Patient Appearance: Well Groomed Mood: Hopeful Affect: Appropriate, Mood Congruent Patient Behavior: Appropriate, Cooperative Speech Pattern: Clear, Appropriate Voice Loudness: Normal Thought Process: Intact, Goal Oriented Thought Disorder: Not Present Hallucinations: Denies Suicidal Ideation: Denies Homicidal Ideation: Denies Insight/Judgement: Fair Sleep: Well Appetite: Good Muscle strength/Tone: Normal Gait/Station: Normal
== END 2018-01-02 09:50 | disposition home or self-care (01) | DRG 895 ==
LOC: YASAS 08:13 → Y5N 12:15
PROVIDERS: ADMIT Psychiatry & Neurology Psychiatry; ATTEND Psychiatry & Neurology Psychiatry
PROC: HZ42ZZZ Group Counseling for Substance Abuse Treatment, Cognitive-Behavioral (ICD-10-PCS; principal; 2017-12-05)
DX: F19.20 Other psychoactive substance dependence, uncomplicated (principal); F14.20 Cocaine dependence, uncomplicated; F31.89 Other bipolar disorder; F10.20 Alcohol dependence, uncomplicated; I10 Essential (primary) hypertension; E11.9 Type 2 diabetes mellitus without complications; Z79.4 Long term (current) use of insulin; E78.5 Hyperlipidemia, unspecified; G62.9 Polyneuropathy, unspecified; Z91.5 Personal history of self-harm
CPT/HCPCS: 36415; 80053; 81003; 82962; 85027; 85660; 86593; 86803; 90688; 90732; 93005; 93010; G0008; G0009